=== PATIENT | female | born 1990 | race Asian ===

== ENCOUNTER 2016-05-29 15:02 | Inpatient (IN) | payer SELFPAY ==
[~2016-05-29] VITALS: Ht 160 cm; Wt 65.8 kg
[2016-06-14] MEDS ORDERED: OXYTOCIN 20 UNITS/LR PREMIX 1,000 ML IV SCH ×2 (11:29→11:46)
[2016-06-14] MEDS ORDERED: IBUPROFEN 800 MG TAB PO PRN (11:30)
[2016-06-14] MEDS ORDERED: PROMETHAZINE 25 MG/ML VIAL IVP PRN (11:30)
[2016-06-14] MEDS ORDERED: CARBOPROST 250 MCG/ML AMP IM PRN (11:30)
[2016-06-14] MEDS ORDERED: METHYLERGONOVINE 0.2 MG/ML AMP IM SCH (11:30)
[2016-06-14] MEDS ORDERED: NALBUPHINE 10 MG/ML AMP IVP PRN (11:30)
[2016-06-14 11:50] VITALS: BP 116/78
[2016-06-14] MEDS ORDERED: OXYTOCIN 10 UNITS/ML VIAL IM SCH (12:00)
[2016-06-14] MEDS: LACTATED RINGERS 1,000 ML IV SCH ×2 (12:18→16:33)
[2016-06-14 12:50] LABS: BASOPHILS % (AUTO) 0.2 % (0.0-2.0); EOSINOPHILS # (AUTO) 0.1 K/uL (0-0.4); EOSINOPHILS % (AUTO) 1.3 % (0.0-4.0); HEMATOCRIT 34.2 % (36-48); HEMOGLOBIN 11.8 g/dL (12.0-16.0); LYMPHOCYTES # (AUTO) 0.8 K/uL (2.5-16.5); LYMPHOCYTES % (AUTO) 8.9 % (20.5-51.1); MEAN CORPUSCULAR HEMOGLOBIN 30 pg (27-31); MEAN CORPUSCULAR HGB CONC 35 g/dL (33-37); MEAN CORPUSCULAR VOLUME 87 fL (80-94); MONOCYTES # (AUTO) 0.6 K/uL (0.8-1.0); MONOCYTES % (AUTO) 6.8 % (1.7-9.3); NEUTROPHILS # (AUTO) 7.8 K/uL (1.8-7.7); NEUTROPHILS % (AUTO) 82.8 % (42.2-75.2); PLATELET COUNT (AUTO) 219 K/uL (140-450); RED BLOOD CELL COUNT(AUTO) 3.92 MIL/uL (4.20-5.40); RED CELL DISTRIBUTION WIDTH 17.5 % (11.6-13.7); WHITE BLOOD COUNT (AUTO) 9.3 K/uL (4.8-10.8)
[2016-06-14] MEDS ORDERED: OXYTOCIN 20 UNITS/LR PREMIX 1,000 ML IV ONE (13:37)
[2016-06-14 14:20] LABS: APPEARANCE,URINE CLOUDY (CLEAR); BILIRUBIN,URINE NEGATIVE (NEGATIVE); BLOOD, URINE NEGATIVE (NEGATIVE); COLOR,URINE YELLOW (YELLOW); LEUKOCYTE ESTERASE ,URINE NEGATIVE (NEGATIVE); NITRITE, URINE NEGATIVE (NEGATIVE); PROTEIN,URINE TRACE (NEGATIVE); UGLUCOSE NEGATIVE (NEGATIVE); UROBILINOGEN,URINE 0.2 EU/dL (0.2 - 1)
[2016-06-14 14:22] LABS: ANION GAP 13.3 (8-16); CALCIUM 8.8 mg/dL (8.5-10.1); CARBON DIOXIDE 23.7 mmol/L (21-32); CREATININE 0.5 mg/dL (0.6-1.3)
[2016-06-14 14:28] LABS: ALBUMIN 2.6 g/dL (3.4-5.0); TOTAL BILIRUBIN 0.3 mg/dL (0.0-1.0); TOTAL PROTEIN, SERUM 6.6 g/dL (6.4-8.2)
[2016-06-14 14:35] LABS: HIV RAPID SCREEN NON-REACTIVE (NON REACTIV)
[2016-06-14 14:36] LABS: BACTERIA,URINE 3+ /HPF (None Seen); MUCUS,URINE 1+ /LPF (None Seen); RBC,URINE 0-3 /HPF (0-5); WBC,URINE 0-3 /HPF (0-5)
[2016-06-14] MEDS ORDERED: PREN-380 PO (14:59)
[2016-06-14] MEDS ORDERED: AMPICILLIN 2,000 MG VIAL ONE ×2 (18:05→22:06)
[2016-06-14] MEDS: AMPICILLIN 2,000 MG in NACL 0.9% 100 ML IV SCH ×2 (18:06→22:12)
[2016-06-14] MEDS ORDERED: ROPIVACAINE 0.2%/NS PREMIX 250 ML EPI ONE (20:26)
[2016-06-14] MEDS ORDERED: ROPIVACAINE 0.2%/NS PREMIX 250 ML EPI SCH (20:40)
[2016-06-14] MEDS ORDERED: AMPICILLIN 1,000 MG VIAL ONE (22:03)
[2016-06-15] MEDS ORDERED: AMPICILLIN 2,000 MG VIAL ONE (02:05)
[2016-06-15] MEDS: AMPICILLIN 2,000 MG in NACL 0.9% 100 ML IV SCH (02:06)
[2016-06-15] MEDS ORDERED: OXYTOCIN 10 UNITS/ML VIAL ONE (04:32)
[2016-06-15] MEDS ORDERED: IBUPROFEN 800 MG TAB PO PRN (04:40)
[2016-06-15] MEDS ORDERED: OXYTOCIN 10 UNITS/ML VIAL IM PRN (04:40)
[2016-06-15] MEDS ORDERED: oxyCODONE/APAP 5/325 MG 1 TAB TAB PO PRN (04:40)
[2016-06-15] MEDS ORDERED: METHYLERGONOVINE 0.2 MG/ML AMP IM PRN (04:40)
[2016-06-15] MEDS ORDERED: WITCH HAZEL 40 PAD PACKAGE TP PRN (04:40)
[2016-06-15] MEDS ORDERED: MEASLES, MUMPS, AND RUBELLA 1 VIAL SQVAC PRN (04:40)
[2016-06-15] MEDS ORDERED: TEMAZEPAM 15 MG CAP PO PRN (04:40)
[2016-06-15] MEDS ORDERED: BENZOCAINE/MENTHOL 20%-0.5% 60 GM CAN TP PRN (04:40)
[2016-06-15] MEDS ORDERED: HYDROcodone/APAP 5/325 MG 1 TAB TAB PO PRN (04:40)
--- NOTE | 2016-06-15 09:40 | NUR ---
PATIENT HAS BEEN SCREENED AND CATEGORIZED LOW RISK. PATIENT WILL BE SEEN WITHIN 7 DAYS OF ADMISSION. 06/21/[address]
[2016-06-15 14:05] LABS: RAPID PLASMA REAGIN NON-REACTIVE (Non Reactiv)
[2016-06-15] MEDS ORDERED: DOCUSATE SOD/SENNA 50/8.6 MG 1 TAB PO SCH (21:00)
[2016-06-16 07:31] LABS: HEMATOCRIT 33.6 % (36-48)
== END 2016-06-16 13:25 | disposition home or self-care (01) | DRG 775 ==
LOC: INTOOBSV 15:02 → UNDOADMOB 15:02 → MLD 15:02 → MFCC 06-15 07:38 → EDSTATUS 06-21 15:26
PROVIDERS: ADMIT Obstetrics & Gynecology; ATTEND Obstetrics & Gynecology
PROC: 10D07Z6 Extraction of Products of Conception, Vacuum, Via Natural or Artificial Opening (ICD-10-PCS; principal; 2016-06-15)
PROC: 0W8NXZZ Division of Female Perineum, External Approach (ICD-10-PCS; 2016-06-15)
PROC: 00HU33Z Insertion of Infusion Device into Spinal Canal, Percutaneous Approach (ICD-10-PCS; 2016-06-15)
PROC: 3E0R3CZ (ICD-10-PCS; 2016-06-15)
PROC: 3E0234Z Introduction of Serum, Toxoid and Vaccine into Muscle, Percutaneous Approach (ICD-10-PCS; 2016-06-16)
DX: O69.81X0 Labor and delivery complicated by cord around neck, without compression, not applicable or unspecified (principal); Z3A.39 39 weeks gestation of pregnancy; Z37.0 Single live birth; Z23 Encounter for immunization
CPT/HCPCS: 36415; 51702; 80053; 81001; 85018; 85025; 86592; 86886; 86900; 86901; 87086; 90715; J0290; J2590; J2795; J7120